=== PATIENT | female | born 1945 | race African-American/Black ===

== ENCOUNTER 2020-02-28 11:53 | Outpatient (CLI) | payer OTHER ==
[~2020-02-28 11:53] MED LIST: COZAAR50 MG; LEVAQUIN500 MG PO; LEVAQUIN750 MG; NEURONTIN300 MG; NORFLEX; PANADOL EXTRA500 MG; PEPCID20 MG PO; PERCOCET 5-3251 EACH PO
== END 2020-02-28 15:55 | disposition home or self-care (01) ==
LOC: PPH VACUNA 11:53
PROVIDERS: ATTEND Emergency Medicine Pediatric Emergency Medicine
DX: Z23 Encounter for immunization (principal)

== ENCOUNTER → 2020-03-20 07:00 | Outpatient (CLI) | payer OTHER | END | disposition home or self-care (01) | LOC: PPH VACUNA 07:00 | PROVIDERS: ATTEND Emergency Medicine Pediatric Emergency Medicine | DX: Z23 Encounter for immunization (principal) ==

== ENCOUNTER 2020-11-12 15:10 | Outpatient (CLI) | payer OTHER | END 2020-11-12 15:15 | disposition home or self-care (01) | LOC: PPH VACUNA 15:10 | PROVIDERS: ATTEND Emergency Medicine Pediatric Emergency Medicine | DX: Z23 Encounter for immunization (principal) ==